=== PATIENT | female | born 1940 | race Caucasian/White ===

== ENCOUNTER → 2022-12-16 | Outpatient (CLI) | payer MEDICARE, BC, SELFPAY ==
--- NOTE | 2022-12-16 11:15 | MRI_ITS ---
STUDY: MRI LUMBAR SPINE WITHOUT CONTRAST REASON FOR EXAM: Female, 82 years old. DISC Herniation, radiculitis TECHNIQUE: Standardized fat and water weighted pulse sequences were obtained in the sagittal and axial planes. Noncontrast images obtained. Contrast: No contrast administered COMPARISON: Prior comparison studies are not available for review at this time. FINDINGS: Vertebral bodies and alignment. 1. Vertebral body height and alignment are maintained, Modic type II changes are present at L4-5. No evidence of fracture marrow edema or destructive marrow replacement process. 2. Paraspinous soft tissue planes have normal appearance. Normal appearance of the muscular fascial planes of the erector spinae. 3. Normal appearance of the sacrum and sacroiliac joints. 4. Incidental note of bilateral renal extrarenal pelvis, and peripelvic cysts on the LEFT. Intervertebral disks levels. T12-L1: Mild disc desiccation, LEFT posterior lateral disc bulge and osteophyte without canal or foraminal narrowing. Mild facet hypertrophic changes. L1-2: Disc desiccation, facet hypertrophic changes, no disc herniation canal or foraminal narrowing. L2-3: Disc desiccation, broad-based a concentric disc protrusion, deformity the anterior epidural space with narrowing of the central thecal sac to approximately 7 mm. Crowding of nerve roots lateral recesses greater on LEFT than RIGHT contributed by chronic disc protrusion and facet hypertrophic changes. Neural foramina appear widely patent. L3-4: Loss of disc height, disc desiccation, broad-based chronic disc protrusion osteophyte complex at. Facet and ligament flavum hypertrophic changes are present, there appear to be synovial cyst associated with the medial aspect of both facets, contributing to deformity of the dorsal epidural space. Thecal sac is narrowed to approximately 3 mm, significant compression of lateral recesses and included neural foramina. There is a LEFT lateral bulge and osteophyte complex contacting the emerging LEFT L3 nerve root lateral to the LEFT neural foramen. L4-5: Loss disc height, broad-based chronic appearing mildly eccentric LEFT greater than RIGHT disc protrusion osteophyte complex. No canal stenosis however compression of the LEFT lateral recess with potential LEFT L5 nerve root impingement. Facet and ligamentum flavum hypertrophic changes are present. Neural foramina are widely patent. L5-S1: Disc desiccation, subtle grade 1 anterolisthesis of L5 on S1 estimated at approximately 3 mm up. Facet and ligament flavum hypertrophic changes are present. No canal stenosis however crowding of nerve roots lateral recesses due to osteophytes and mild anterolisthesis. Lateral bulges and osteophyte complexes contact the emerging L5 nerve roots lateral to the neural foramina with mild displacement. Spinal cord: Normal appearance of the spinal cord and conus. Conus is located at L1. Cauda equina has normal appearance. No evidence of cord compression or edema. No intramedullary signal abnormality noted. MRI/Spine Lumbar (Routine) IMPRESSION: 1. Multilevel lumbar spondylosis with broad-based disc bulge osteophyte complexes at multiple levels. 2. Chronic appearing disc protrusion osteophyte complex at L3-4 with additional facet degenerative changes contributing to severe canal stenosis with central canal measuring 3 mm and evident potential nerve root impingement. 3. There is contact with the emerging L3 nerve root lateral to the neural foramen due to lateral disc bulge and osteophyte with potential impingement. 4. Chronic appearing disc protrusion at L2-3 with crowding of nerve roots in the lateral recesses without serina nerve root impingement. 5. Minimal grade 1 anterolisthesis of L5 on S1 contributed by facet degenerative changes. Crowding of nerve roots lateral recesses, however symmetric lateral disc bulge and osteophyte complexes contact the L5 nerve roots lateral to the neural foramina with mild displacement. 6. Normal appearance of visualized spinal cord and conus. Electronically Signed: Kj Rhoades MD at 0:21 EDT ,
[2022-12-16 11:48] VITALS: BP 145/74; PULSE 80; RESP 16; O2SAT 98
[2022-12-16 12:03] VITALS: BP 145/74; PULSE 80; RESP 16; O2SAT 93
== END | disposition home or self-care (01) ==
LOC: MRI 11:00
PROVIDERS: PCP Family Medicine
DX: M47.27 Other spondylosis with radiculopathy, lumbosacral region (principal); M51.26 Other intervertebral disc displacement, lumbar region
CPT/HCPCS: 72148

== ENCOUNTER → 2023-12-16 | Outpatient (CLI) | payer MEDICARE, BC, SELFPAY ==
--- NOTE | 2023-12-16 12:34 | MRI_ITS ---
HISTORY: Lumbar radiculopathy. TECHNIQUE: Multiplanar and multisequence MR images of the lumbar spine were obtained without intravenous contrast. 142 images. COMPARISON: 12/16/2022. FINDINGS: VERTEBRAE: Vertebral body heights maintained. Mild degenerative bone marrow endplate changes at multiple levels, particularly at T11-12 with Schmorl''s nodes and L3-4 and L4-5 with intervertebral disc space narrowing. ALIGNMENT: No anterior or posterior subluxation. CONUS: Normal morphology and position of the conus medullaris at L1. INTERVERTEBRAL DISCS: T12-L1: Mild left disc extrusion with superior migration, similar to prior. No significant central canal stenosis or foraminal narrowing, based on the sagittal images. L1-2: Increased size of mild disc bulge with facet arthropathy. No significant central canal stenosis or foraminal narrowing. L2-3: Disc bulge eccentric to the left with facet arthropathy resulting in mild central canal stenosis and moderate left foraminal narrowing, similar to prior. L3-4: Moderate disc bulge with facet arthropathy resulting in moderate central canal stenosis and bilateral foraminal narrowing. Left synovial cyst appears decreased in size. L4-5: Mild posterior disc bulge osteophyte complex with facet arthropathy resulting in mild central canal stenosis, left L5 nerve root abutment, mild left, and moderate right foraminal narrowing with probable right L4 nerve root impingement again seen. L5-S1: Very mild disc bulge with facet arthropathy resulting in minimal narrowing of the thecal sac and bilateral foramina, similar to prior. SOFT TISSUES: Mild posterior subcutaneous edema. MRI/Spine Lumbar (Routine) IMPRESSION: Multilevel degenerative disc disease as above. Electronically Signed: Mary Rosado MD at 12:37 EDT ,
[2023-12-16 13:10] VITALS: BP 124/80; PULSE 80; RESP 18; O2SAT 96
[2023-12-16 13:30] VITALS: BP 126/62; PULSE 80; RESP 18; O2SAT 96
== END | disposition home or self-care (01) ==
LOC: MRI 12:29
PROVIDERS: PCP Family Medicine; Referring Provider Family Medicine; Visit Provider Family Medicine
DX: M48.061 Spinal stenosis, lumbar region without neurogenic claudication (principal); M54.16 Radiculopathy, lumbar region
CPT/HCPCS: 72148